=== PATIENT | female | born 1975 | race Caucasian/White ===

== ENCOUNTER → 2022-02-04 | Outpatient (CLI) | payer MEDICARE, OTHER ==
[~2022-02-04] MED LIST: AMOX875 PO; CLIN150; CLIN300 PO; CODACE30 PO; HYDACE5 PO; HYDACE7.5; IBUP800; IBUP800 PO; ONDA4 PO; OXYACE5T PO; PENVK500 PO; PROM25 PO; PSEU120ER PO; RXSULTRIDS PO; [UNRECOGNIZED DRUG - OTHER]
[2022-02-10 10:16] LABS: HPV 16 Negative (Negative); HPV 18 Negative (Negative); HPV OTHER HR TYPES Negative (Negative)
== END ==
LOC: LAB SHORT 17:40 → LAB 17:40
PROVIDERS: Physician Assistant Medical
DX: Z12.4 Encounter for screening for malignant neoplasm of cervix (principal)
CPT/HCPCS: 87624; G0145

== ENCOUNTER 2022-06-10 08:29 | Day surgery (SDC) | payer MEDICARE, OTHER ==
[2022-06-09 09:49] LABS: BASOPHILS ABSOLUTE AUTO 0.06 K/mm3 (0.00-0.23); BASOPHILS PERCENT AUTO 1 % (0-2); EOSINOPHILS ABSOLUTE AUTO 0.27 K/mm3 (0.00-0.68); EOSINOPHILS PERCENT AUTO 4 % (0-6); Hematocrit 39.2 % (33.0-51.0); Hemoglobin 13.3 g/dL (11.5-16.0); IMMATURE GRAN ABSOLUTE AUTO 0.01 K/mm3 (0.00-0.10); IMMATURE GRAN PERCENT AUTO 0 % (0-1); LYMPHOCYTES ABSOLUTE AUTO 1.63 K/mm3 (0.84-5.20); LYMPHOCYTES PERCENT AUTO 25 % (21-46); MONOCYTES ABSOLUTE AUTO 0.52 K/mm3 (0.16-1.47); MONOCYTES PERCENT AUTO 8 % (4-13); Mean Corpuscular HGB 31.2 pg (26.0-34.0); Mean Corpuscular HGB Conc 33.9 g/dL (31.5-36.5); Mean Corpuscular Volume 92 fL (80-100); Mean Platelet Volume 9.1 fL (9.1-12.4); NEUTROPHILS ABSOLUTE AUTO 4.11 K/mm3 (1.96-9.15); NEUTROPHILS PERCENT AUTO 62 % (41-73); Platelet Count 367 K/mm3 (150-400); RDW Standard Deviation 40.5 fL (35.1-46.3); Red Blood Cell Count 4.26 M/mm3 (3.80-5.20)
[2022-06-09 10:15] LABS: Bun/Creatinine Ratio 25.2 (12.0-20.0); Calcium, Blood 8.9 mg/dL (8.5-10.1); Creatinine, Blood 0.56 mg/dL (0.40-1.00); Potassium, Blood 4.3 mmol/L (3.5-5.5)
[~2022-06-10] VITALS: Ht 152.4 cm; Wt 71.2 kg
--- NOTE | 2022-06-10 14:30 | NUR ---
PT VOMITED SHORTLY AFTER TAKING NORCO. DR. KELLER NOTIFIED AND ORDERS PLACED FOR PHENERGAN, TORADOL AND FLUID BOLUS.
--- NOTE | 2022-06-10 18:47 | NUR ---
PT ARRIVED TO THE ROOM FROM PACU AT APPROXIMATELY 1430. PT ALERT AND ORIENTED AT TIME OF ARRIVAL. SHE REPORTED NAUSEA AND PAIN. PT WAS GIVEN ZOFRAN FOR NAUSEA AND DILAUDID FOR PAIN, PAIN IMPROVED. PT WAS ABLE TO EAT A CRACKER AND DRINK SOME WATER.
--- NOTE | 2022-06-10 18:50 | NUR ---
DISCHARGE PT READY TO DISCHARGE AT 1800. SHE WAS ABLE TO TOLERATE PO, VOID, AND PAIN MANAGED PRIOR TO DISCHARGE. PT PROVIDED WITH WRITTEN AND VERBAL DISCHARGE INSTRUCTIONS. SHE REPORTED UNDERSTANDING. PT STATES SHE HAS PRESCRIPTIONS AT HOME. PT ASSISTED OUT IN W/C AT 1813.
== END 2022-06-10 18:30 | disposition home or self-care (01) ==
LOC: ORSCMMR 08:29 → ORD 10:15 → ORSCMMR 10:15 → SURS 14:18 → ORSCMMR 14:18 → SURS 18:30 → ORD 08-05 07:30
PROVIDERS: Obstetrics & Gynecology
PROC: 0UT74ZZ Resection of Bilateral Fallopian Tubes, Percutaneous Endoscopic Approach (ICD-10-PCS; principal; 2022-06-10 10:15)
PROC: 0UBM0ZZ Excision of Vulva, Open Approach (ICD-10-PCS; principal; 2022-06-10 10:15)
PROC: 0UT94ZZ Resection of Uterus, Percutaneous Endoscopic Approach (ICD-10-PCS; principal; 2022-06-10 10:15)
DX: N92.1 Excessive and frequent menstruation with irregular cycle (principal); N90.7 Vulvar cyst; E78.5 Hyperlipidemia, unspecified; F41.8 Other specified anxiety disorders; F17.210 Nicotine dependence, cigarettes, uncomplicated
CPT/HCPCS: 58571; 11422; S2900; 36415; 80048; 84703; 85025; 86850; 86900; 86901; 88305; 88307; A9270; J0690; J1100; J1170; J1885; J2250; J2405; J2550; J2704; J2795; J3010; J7040; J7120

== ENCOUNTER 2022-09-03 18:55 | Emergency (ER) | payer MEDICARE, OTHER ==
[~2022-09-03] VITALS: Ht 152.4 cm; Wt 68.0 kg
[2022-09-03 20:17] LABS: Albumin/Globulin Ratio 1.1 (0.8-1.8); Bilirubin, Total 0.7 mg/dL (0.1-1.0); Bun/Creatinine Ratio 22.9 (12.0-20.0); Calcium, Blood 9.3 mg/dL (8.5-10.1); Creatinine, Blood 0.48 mg/dL (0.40-1.00); Globulin, Blood 3.6 g/dL (2.2-4.0); Potassium, Blood 4.2 mmol/L (3.5-5.5); Total Protein, Blood 7.6 g/dL (6.4-8.2)
[2022-09-03 20:23] LABS: Source, Urine Clean Catch
[2022-09-03 20:26] LABS: Bilirubin, Urine Neg (Neg); Blood, Urine 3+ (Neg); Glucose Qualitative, Urine Neg (Neg); Ketones, Urine Neg (Neg); Leukocyte Esterase, Urine 3+ (Neg); Nitrite, Urine Neg (Neg); Protein, Urine Neg (Neg); Urobilinogen, Urine NORM (Normal)
[2022-09-03 20:27] LABS: Hematocrit 40.2 % (33.0-51.0); Hemoglobin 14.2 g/dL (11.5-16.0); Mean Corpuscular HGB 31.1 pg (26.0-34.0); Mean Corpuscular HGB Conc 35.3 g/dL (31.5-36.5); Mean Corpuscular Volume 88 fL (80-100); RDW Coefficient Variation 11.9 % (11.7-14.2); RDW Standard Deviation 37.4 fL (35.1-46.3); Red Blood Cell Count 4.57 M/mm3 (3.80-5.20); White Blood Cell Count 9.52 K/mm3 (4.00-11.30)
[2022-09-03 20:31] LABS: Appearance, Urine Clear (Clear); Color, Urine Pale Yellow (P-Yellow)
[2022-09-03 20:32] LABS: Bacteria Few /hpf; Red Blood Cells, Urine 0-2 /hpf (0-2); Squamous Epithelial Cells Few /hpf (Few)
[2022-09-03 20:51] LABS: IMMATURE GRAN PERCENT AUTO 1 % (0-1); Mean Platelet Volume 9.2 fL (9.1-12.4); Platelet Count 279 K/mm3 (150-400)
[2022-09-03 20:56] LABS: BASOPHILS ABSOLUTE MAN 0.09 K/mm3 (0.00-0.23); BASOPHILS PERCENT MAN 1 % (0-2); EOSINOPHILS PERCENT MAN 0 % (0-6); LYMPHOCYTES % ATYPICAL MANUAL 1 % (0-0); LYMPHOCYTES ABSOLUTE MAN 3.33 K/mm3 (0.84-5.20); LYMPHOCYTES PERCENT MAN 34 % (21-46); MONOCYTES ABSOLUTE MAN 0.85 K/mm3 (0.16-1.47); MONOCYTES PERCENT MAN 9 % (4-13); NEUTROPHILS ABSOLUTE MAN 5.23 K/mm3 (1.96-9.15); SEG NEUTROPHILS PERCENT MAN 55 % (41-73); TOTAL CELLS COUNTED 100
[2022-09-04] MEDS ORDERED: SULTRIDS PO (00:26)
[2022-09-04] MEDS ORDERED: Pyridium100 MG PO (00:26)
[2022-09-04 01:18] LABS: Candida species (DNA Probe) Negative (NEGATIVE); G. vaginalis (DNA Probe) Positive (NEGATIVE); T. vaginalis (DNA Probe) Negative (NEGATIVE)
[2022-09-04] MEDS ORDERED: METR500 PO (08:24)
== END 2022-09-04 01:07 | disposition home or self-care (01) ==
LOC: ER 18:55
PROVIDERS: Student in an Organized Health Care Education/Training Program
DX: N39.0 Urinary tract infection, site not specified (principal); N93.0 Postcoital and contact bleeding; N76.0 Acute vaginitis; Z90.710 Acquired absence of both cervix and uterus
CPT/HCPCS: 36415; 80053; 81001; 85025; 87086; 87480; 87491; 87510; 87660; 96372; 99284; A9270; J1885

== ENCOUNTER 2022-09-20 09:51 | Emergency (ER) | payer MEDICARE, OTHER ==
[~2022-09-20] VITALS: Ht 152.4 cm; Wt 68.0 kg
[~2022-09-20 09:51] MED LIST changes: +METR500 PO; +Pyridium100 MG PO; +SULTRIDS PO
[2022-09-20 11:15] LABS: BASOPHILS ABSOLUTE AUTO 0.04 K/mm3 (0.00-0.23); BASOPHILS PERCENT AUTO 0 % (0-2); EOSINOPHILS ABSOLUTE AUTO 0.05 K/mm3 (0.00-0.68); EOSINOPHILS PERCENT AUTO 1 % (0-6); Hematocrit 40.3 % (33.0-51.0); Hemoglobin 14.2 g/dL (11.5-16.0); IMMATURE GRAN ABSOLUTE AUTO 0.02 K/mm3 (0.00-0.10); IMMATURE GRAN PERCENT AUTO 0 % (0-1); LYMPHOCYTES ABSOLUTE AUTO 1.56 K/mm3 (0.84-5.20); LYMPHOCYTES PERCENT AUTO 17 % (21-46); MONOCYTES ABSOLUTE AUTO 0.39 K/mm3 (0.16-1.47); MONOCYTES PERCENT AUTO 4 % (4-13); Mean Corpuscular HGB 31.1 pg (26.0-34.0); Mean Corpuscular HGB Conc 35.2 g/dL (31.5-36.5); Mean Corpuscular Volume 88 fL (80-100); Mean Platelet Volume 8.5 fL (9.1-12.4); NEUTROPHILS PERCENT AUTO 78 % (41-73); Platelet Count 410 K/mm3 (150-400); RDW Coefficient Variation 11.9 % (11.7-14.2); RDW Standard Deviation 38.1 fL (35.1-46.3); Red Blood Cell Count 4.56 M/mm3 (3.80-5.20); White Blood Cell Count 9.16 K/mm3 (4.00-11.30)
[2022-09-20 11:32] LABS: Albumin, Blood 4.4 g/dL (3.4-5.0); Albumin/Globulin Ratio 1.3 (0.8-1.8); Bilirubin, Total 0.5 mg/dL (0.1-1.0); Bun/Creatinine Ratio 22.5 (12.0-20.0); Calcium, Blood 9.7 mg/dL (8.5-10.1); Creatinine, Blood 0.49 mg/dL (0.40-1.00); Globulin, Blood 3.3 g/dL (2.2-4.0); Potassium, Blood 4.2 mmol/L (3.5-5.5); Total Protein, Blood 7.7 g/dL (6.4-8.2)
[2022-09-20 12:54] LABS: Source, Urine Clean Catch
[2022-09-20 13:09] LABS: Appearance, Urine Clear (Clear); Bilirubin, Urine Neg (Neg); Blood, Urine Neg (Neg); Color, Urine Yellow (P-Yellow); Glucose Qualitative, Urine Neg (Neg); Ketones, Urine Neg (Neg); Leukocyte Esterase, Urine Neg (Neg); Nitrite, Urine Neg (Neg); Protein, Urine Neg (Neg); Urobilinogen, Urine NORM (Normal)
[2022-09-20] MEDS ORDERED: HYDR1TAB94 PO (16:19)
== END 2022-09-20 16:30 | disposition home or self-care (01) ==
LOC: ER 09:51
PROVIDERS: Physician Assistant
DX: R10.2 Pelvic and perineal pain (principal); Z98.890 Other specified postprocedural states
CPT/HCPCS: 36415; 74177; 80053; 81003; 83690; 85025; J1170; J2405; J7030; Q9967

== ENCOUNTER 2023-08-07 11:26 | Emergency (ER) | payer MEDICARE, OTHER ==
[~2023-08-07] VITALS: Ht 154.9 cm; Wt 72.6 kg
[~2023-08-07 11:26] MED LIST changes: +HYDR1TAB94 PO
[2023-08-07 11:47] VITALS: BP 156/95
== END 2023-08-07 13:57 | disposition home or self-care (01) ==
LOC: ER 11:26
DX: M53.3 Sacrococcygeal disorders, not elsewhere classified (principal); Z79.899 Other long term (current) drug therapy
CPT/HCPCS: 72100; 99283-25

== ENCOUNTER 2024-08-21 07:26 | Day surgery (SDC) | payer MEDICARE, OTHER ==
[~2024-08-21] VITALS: Ht 154.9 cm; Wt 73.8 kg
[~2024-08-21 07:26] MED LIST changes: +BUSPIRONE HCL30 M6 PO; +CLON.5 PO; +FLUV50 PO; +HYDHCL25 PO; +HYDPAM100 PO; +Lactated Ringer's 1,000 ML IV ONE; +REMERON1510 PO; +RISPERIDONE110 PO; +propofoL 50 ML IV ONE
[2024-08-21] MEDS ORDERED: BUSPIRONE HCL7.5 M6 (07:56)
[2024-08-21] MEDS ORDERED: REXULTI1 MG (07:56)
[2024-08-21] MEDS ORDERED: BUSP5 (07:56)
[2024-08-21] MEDS ORDERED: Lactated Ringer's 1,000 ML IV ONE (08:49)
[2024-08-21] MEDS ORDERED: Midazolam HCL 1 MG/ML 5MLVIAL ONE (08:57)
[2024-08-21] MEDS ORDERED: propofoL 50 ML IV ONE (09:12)
[2024-08-21 10:20] VITALS: BP 131/77
== END 2024-08-21 10:05 | disposition home or self-care (01) ==
LOC: ORSCSDS 07:26
PROVIDERS: Surgery
PROC: 3E0H8GC Introduction of Other Therapeutic Substance into Lower GI, Via Natural or Artificial Opening Endoscopic (ICD-10-PCS; principal; 2024-08-21 08:45)
PROC: 0DBN8ZX Excision of Sigmoid Colon, Via Natural or Artificial Opening Endoscopic, Diagnostic (ICD-10-PCS; principal; 2024-08-21 08:45)
PROC: 0DBP8ZX Excision of Rectum, Via Natural or Artificial Opening Endoscopic, Diagnostic (ICD-10-PCS; principal; 2024-08-21 08:45)
PROC: 0DBM8ZX Excision of Descending Colon, Via Natural or Artificial Opening Endoscopic, Diagnostic (ICD-10-PCS; principal; 2024-08-21 08:45)
PROC: 0DBL8ZX Excision of Transverse Colon, Via Natural or Artificial Opening Endoscopic, Diagnostic (ICD-10-PCS; principal; 2024-08-21 08:45)
DX: Z12.11 Encounter for screening for malignant neoplasm of colon (principal); D12.8 Benign neoplasm of rectum; K63.5 Polyp of colon; K62.1 Rectal polyp; K57.30 Diverticulosis of large intestine without perforation or abscess without bleeding; K64.8 Other hemorrhoids; K64.4 Residual hemorrhoidal skin tags; I10 Essential (primary) hypertension; F41.9 Anxiety disorder, unspecified; Z79.899 Other long term (current) drug therapy; Z87.891 Personal history of nicotine dependence
CPT/HCPCS: 88305; J2250; J2704; J7120